=== PATIENT | female | born 1955 | race Caucasian/White ===

== ENCOUNTER → 2016-12-24 | Outpatient (CLI) | payer OTHER ==
--- NOTE | ~2016-12-24 | MY29 ---
[facility] A Service of [facility] RADIOLOGY TEXT RESULTS PATIENT: DONALD YI LOCATION: [facility] : 51 UNIT #: [id number] AGE: [address]: LATRICE NAVARRO MD SEX: F ORDER DR: [id number] [facility]. [place], [place] [address] [id number] O MR#: [id number] Acc #: [id number] NAME: DONALD YI : 1955 SEX: F STUDY DATE/TIME: 12/24/2016 13:35 UNIT: [facility] ROOM: STUDY DESCRIPTION: MY PHYLICIA SCREENING W/ CAD BILAT Attending Physician: Latrice Navarro M.D. Referring Physician: Latrice Navarro M.D. Ordering Physician: Latrice Navarro M.D. Primary Care Physician: Latrice Navarro M.D. MEDICAL IMAGING REPORT This report is preliminary unless electronic signature is present EXAM Bilateral digital screening mammogram with CAD. INDICATION Breast cancer screening. 61-year-old asymptomatic female. No personal or family history of breast cancer. COMPARISON September 12, 2015, August 30, 2014, August 12, 2013, August 23, 2012, August 18, 2011, July 08, 2010, June 26, 2009, June 24, 2008, June 22, 2007, May 31, 2006. FINDINGS The breast tissue is heterogeneously dense, which could obscure detection of small masses. No suspicious findings are seen. IMPRESSION No mammographic evidence of malignancy. Annual clinical breast exam is recommended. Given the patient's breast density, she would likely benefit from annual screening breast tomosynthesis given increased sensitivity and diminished false positive rate as compared to conventional digital mammography. A result letter will be sent to the patient. BIRADS: 1 Negative. Dictated by... Roney Singh M.D. [facility] A Service of [facility] RADIOLOGY TEXT RESULTS PATIENT: DONALD YI LOCATION: [facility] : 51 UNIT #: [id number] AGE: [address]: LATRICE NAVARRO MD SEX: F ORDER DR: THIS IS AN ELECTRONICALLY VERIFIED REPORT Roney Singh M.D. at 12/28/2016 7:59 AM ALEJANDRO/haylee TD: 12/24/2016 16:20 JOB #: [id number] MEDICAL IMAGING REPORT Page 1 of 1 COPY
== END | disposition home or self-care (01) ==
LOC: CWCC 13:02
DX: Z12.31 Encounter for screening mammogram for malignant neoplasm of breast (principal)
CPT/HCPCS: G0202